=== PATIENT | male | born 1955 | race Caucasian/White ===

== ENCOUNTER 2025-07-27 22:43 | Emergency (ER) | payer MEDICARE, SELFPAY ==
[2025-07-27 22:48] VITALS: BP 158/88; PULSE 71; RESP 22; TEMP 36.4; O2SAT 96; BMI 36.2
--- NOTE | 2025-07-27 22:50 | ECG_ITS ---
[facility] Test Date: 2025-07-27 Pat Name: Krysten Lorenzana Department: Room: Gender: Male [employer]: : [id number] Requested By: [employer] Order Number: [id number] Bhanu MD: MAYRA JEFFRIES Measurements Intervals [place] Rate: 74 P: 40 SD: 200 QRS: -26 QRSD: 99 T: 28 QT: 387 QTc: 431 Interpretive Statements SINUS RHYTHM WITH FREQUENT VENTRICULAR PREMATURE COMPLEXES BORDERLINE LEFT AXIS DEVIATION [QRS AXIS < -20] LOW QRS VOLTAGE IN PRECORDIAL LEADS [QRS DEFLECTION < 1.0 mV IN CHEST LEADS] INCOMPLETE RIGHT BUNDLE BRANCH BLOCK [90+ ms QRS DURATION, TERMINAL R IN V1/V2, 40+ ms S IN I/aVL/V4/V5/V6] MODERATE VOLTAGE CRITERIA FOR LVH, CONSIDER NORMAL VARIANT [MEETS CRITERIA IN ONE OF: R(aVL), S(V1), R(V5), R(V5/V6)+S(V1)] ABNORMAL RHYTHM ECG No previous ECG available for comparison Electronically Signed On 07-29-2025 22:29:57 CDT by MAYRA JEFFRIES [email or web address]
--- NOTE | 2025-07-30 11:46 | PC.NURSE ---
Attempted to call pt after LWBS and pt does not have a working phone number in the chart.
== END 2025-07-28 00:01 | disposition left against medical advice (07) ==
PROVIDERS: Emergency Provider Emergency Medicine; PCP Nurse Practitioner Family
DX: Z53.21 Procedure and treatment not carried out due to patient leaving prior to being seen by health care provider (principal); I49.3 Ventricular premature depolarization; R94.31 Abnormal electrocardiogram [ECG] [EKG]
CPT/HCPCS: 93005